=== PATIENT | male | born 1985 | race Hispanic/Latino ===

== ENCOUNTER 2017-08-10 11:16 | Inpatient (IN) | payer OTHER ==
--- NOTE | 2017-08-10 12:10 | ED PDOC ---
HPI: General Adult Time Seen by Provider: 08/10/17 11:35 Chief Complaint (Nursing): Upper Extremity Problem/Injury History Per: Patient Additional Complaint(s): Pt. states he fell down yesterday and injured the R elbow. Denies numbness, tingling, other injury. Past Medical History Reviewed: Historical Data, Nursing Documentation, Vital Signs Vital Signs: Last Vital Signs Temp 98 F 08/10/17 17:32 Pulse 75 08/10/17 17:32 Resp 18 08/10/17 17:32 BP 130/78 08/10/17 17:32 Pulse Ox 96 08/10/17 17:42 - Medical History Other PMH: Factor V Leiden - Family History Family History: States: No Known Family Hx - Allergies Allergies/Adverse Reactions: Allergies Allergy/AdvReac Type Severity Reaction Status Date / Time No Known Allergies Allergy Verified 08/10/17 11:35 Review of Systems ROS Statement: Except As Marked, All Systems Reviewed And Found Negative Physical Exam - Reviewed Nursing Documentation Reviewed: Yes Vital Signs Reviewed: Yes - Physical Exam Appears: Positive for: Well, Non-toxic, No Acute Distress Head Exam: Positive for: ATRAUMATIC, NORMAL INSPECTION, NORMOCEPHALIC Skin: Positive for: Normal Color, Warm. Negative for: Rash Eye Exam: Positive for: EOMI, Normal appearance, PERRL ENT: Positive for: Normal ENT Inspection Neck: Positive for: Normal, Painless ROM Cardiovascular/Chest: Positive for: Regular Rate, Rhythm Respiratory: Positive for: CNT, Normal Breath Sounds Pulses-Radial (L): 2+ Pulses-Radial (R): 2+ Gastrointestinal/Abdominal: Positive for: Normal Exam, Bowel Sounds, Soft. Negative for: Tenderness Back: Positive for: Normal Inspection Extremity: Positive for: Capillary Refill (< 2 seconds of RUE), Other (R elbow with mild tenderness and swelling without deformity; no shoulder or wrist tenderness on RUE; limited ROM of R elbow secondary to pain) Neurologic/Psych: Positive for: Alert, Oriented - Laboratory Results Result Diagrams: 08/10/17 15:10 08/10/17 15:10 - ECG O2 Sat by Pulse Oximetry: 96 - Progress ED Course And Treament: R elbow x-ray ordered. Motrin 600mg PO ordered. 1200 Elbow x-ray: ? radial head fx 1306 CT R elbow w/o contrast: Minimally displaced radial head fracture with associated joint effusion. Case d/w Dr. Otero, ortho international relations professor, and will come to ED to see patient. 1430 Dr. Otero at bedside and performed joint aspiration in ED. Requests that pt. be admitted to medical service international relations professor and pt. will require surgery tomorrow. NPO after midnight. Elbow immobilized by Dr. Otero with posterior orthoglass splint. 1455 Case d/w Dr. Pierce and arrangements made for admission. Disposition - Clinical Impression Clinical Impression: Right radial head fracture - Patient ED Disposition Is Patient to be Admitted: No - Disposition Disposition Time: 14:40 Condition: STABLE
--- NOTE | 2017-08-10 13:08 | CT ---
PROCEDURE: CT of the Right elbow. HISTORY: attention R elbow COMPARISON: None available. TECHNIQUE: Contiguous axial images of the right elbow were obtained. Coronal and sagittal reformats were generated. This CT exam was performed using one or more of the following dose reduction techniques: Automated exposure control, adjustment of the mA and/or kV according to patient size, and/or use of iterative reconstruction technique. FINDINGS: BONES: Minimally displaced radial head fracture with associated joint effusion. RIGHT JOINT: Unremarkable. No dislocation. No degenerative changes. SOFT TISSUES: Unremarkable. IMPRESSION: Minimally displaced radial head fracture with associated joint effusion.
[2017-08-10] MEDS ORDERED: Povidone Iodine Topical 10% Sol ONE (14:26)
[2017-08-10] MEDS ORDERED: Lidocaine 1% Inj (20ml) ONE (14:26)
[2017-08-10] MEDS ORDERED: Oxycodone/Acetaminophen 5/325 mg Tab PO STA (14:29)
[2017-08-10] MEDS ORDERED: Oxycodone/Acetaminophen 5/325 mg Tab ONE (14:58)
[2017-08-10 15:29] LABS: BASO # 0.1 K/uL (0.0-0.2); BASO % 0.8 % (0.0-2.0); EOS # 0.1 K/uL (0.0-0.7); EOS % 1.2 % (0.0-4.0); LYMPH # 2.5 K/uL (1.0-4.3); LYMPH % 24.8 % (20.0-40.0); MEAN CELL VOLUME 93.2 fl (80.0-94.0); MEAN CORPUSCULAR HEMOGLOBIN 31.6 pg (27.0-31.0); MEAN CORPUSCULAR HGB CONC 33.9 g/dL (33.0-37.0); MEAN PLATELET VOLUME 7.8 fl (7.2-11.7); MONO # 0.9 K/uL (0.0-0.8); MONO % 8.9 % (0.0-10.0); NEUT # 6.6 K/uL (1.8-7.0); NEUT % 64.3 % (50.0-75.0); WHITE BLOOD COUNT 10.2 K/uL (4.8-10.8)
[2017-08-10 15:55] LABS: PARTIAL THROMBOPLASTIN TIME 29.6 Seconds (25.6-37.1)
[2017-08-10] MEDS ORDERED: Oxycodone/Acetaminophen 5/325 mg Tab PO PRN (16:53)
[2017-08-10 16:54] LABS: ALB/GLOB RATIO 1.3 (1.0-2.1); ALKALINE PHOSPHATASE 63 U/L (38-126); ALT/SGPT 33 U/L (21-72); AST/SGOT 22 U/L (17-59); BLOOD UREA NITROGEN 12 mg/dl (9-20); CALCIUM 9.3 mg/dL (8.4-10.2); CARBON DIOXIDE 26 mmol/L (22-30); CHLORIDE 103 mmol/L (98-107); GFR AFRICAN-AMERICAN > 60; GLUCOSE,RANDOM 98 mg/dL (75-110); POTASSIUM 3.9 MMOL/L (3.6-5.0); SODIUM 139 mmol/l (132-148); TOTAL PROTEIN 8.2 G/DL (6.3-8.2)
[2017-08-10] MEDS ORDERED: HYDROmorphone 0.5 mg/0.5 ml ISec IVP PRN (19:53)
[2017-08-11] MEDS ORDERED: Sodium Chloride 0.9% 1,000 ML IV SCH
--- NOTE | 2017-08-11 00:18 | CP.PCM.HP ---
History of Present Illness - History of Present Illness History of Present Illness: CC: Fall and Right Elbow Pain History of Present Illness: A 32yoM with No PMH except chronic smoking had a fall yesterday, and walked into ED with presenting c/o s/p fall during skateboarding causing injury to RT. elbow with pain/ swelling. + Limited ROM. Denies any injury to the head or LOC. Denies MARVIN, chest pain, HAd surgery for Tympanoplasty and fractures after falls, and as per the mother had Nausea. Currently splinted and no pain. Present on Admission - Present on Admission Any Indicators Present on Admission: No Review of Systems - Review of Systems All systems: reviewed and no additional remarkable complaints except - Musculoskeletal Musculoskeletal: As Per HPI Past Patient History - Infectious Disease Hx of Infectious Diseases: None - Past Medical History & Family History Past Medical History?: No Past Family History: Reviewed and not pertinent Pertinent Family History: Sister- Factor V Leyen Mutation Uncle- Colon Cancer-at the age of 44 Grand Parents- HTN, Lung CA and COPD, Breast Cancer, and Orpharyngeal Cancers - Past Social History Smoking Status: Heavy Smoker > 10 Cigarettes Daily Alcohol: Social Drugs: Denies - CARDIAC Hx Cardiac Disorders: No - MUSCULOSKELETAL/RHEUMATOLOGICAL Hx Falls: No - PSYCHIATRIC Hx Substance Use: No - SURGICAL HISTORY Hx Surgeries: No Hx Musculoskeletal Surgery: Yes Hx Orthopedic Surgery: Yes Other/Comment: Tympanoplasty and ORIF - ANESTHESIA Hx Anesthesia: Yes Hx Anesthesia Reactions: Yes (Nausea) Meds Allergies/Adverse Reactions: Allergies Allergy/AdvReac Type Severity Reaction Status Date / Time No Known Allergies Allergy Verified 08/10/17 11:35 Physical Exam - Constitutional Appears: Well, No Acute Distress - Head Exam Head Exam: ATRAUMATIC, NORMAL INSPECTION, NORMOCEPHALIC - Eye Exam Eye Exam: EOMI, Normal appearance, PERRL Pupil Exam: NORMAL ACCOMODATION, PERRL - ENT Exam ENT Exam: Mucous Membranes Moist, Normal Exam - Neck Exam Neck exam: Positive for: Full Rom, Normal Inspection - Respiratory Exam Respiratory Exam: Clear to Auscultation Bilateral, NORMAL BREATHING PATTERN - Cardiovascular Exam Cardiovascular Exam: REGULAR RHYTHM, +S1, +S2 - GI/Abdominal Exam GI & Abdominal Exam: Normal Bowel Sounds, Soft. absent: Tenderness - Extremities Exam Extremities exam: Positive for: normal inspection Additional comments: Right Upper extremity splinted and normal Neurovascular bundle function distally to the injured site.. - Back Exam Back exam: NORMAL INSPECTION - Neurological Exam Neurological exam: Alert, CN II-XII Intact, Normal Gait, Oriented x3, Reflexes Normal - Psychiatric Exam Psychiatric exam: Normal Affect, Normal Mood - Skin Skin Exam: Dry, Intact, Normal Color, Warm Results - Vital Signs Recent Vital Signs: Last Vital Signs Temp 97.8 F 08/10/17 18:20 Pulse 79 08/10/17 18:20 Resp 18 08/10/17 18:21 BP 125/82 08/10/17 18:20 Pulse Ox 96 08/10/17 18:20 - Labs Result Diagrams: 08/11/17 05:45 08/10/17 15:10 Labs: Laboratory Results - last 24 hr 08/10/17 08/10/17 08/10/17 15:10 15:10 15:10 WBC 10.2 RBC 5.37 Hgb 17.0 Hct 50.0 MCV 93.2 MCH 31.6 H MCHC 33.9 RDW 14.0 Plt Count 282 MPV 7.8 Neut % (Auto) 64.3 Lymph % (Auto) 24.8 Iroquois % (Auto) 8.9 Eos % (Auto) 1.2 Baso % (Auto) 0.8 Neut # 6.6 Lymph # 2.5 [place]quois # 0.9 H Eos # 0.1 Baso # 0.1 PT 11.4 INR 1.0 APTT 29.6 Sodium 139 Potassium 3.9 Chloride 103 Carbon Dioxide 26 Anion Gap 14 BUN 12 Creatinine 0.8 Est GFR ( Amer) > 60 Est GFR (Non-Af Amer) > 60 Random Glucose 98 Calcium 9.3 Total Bilirubin 1.0 AST 22 ALT 33 Alkaline Phosphatase 63 Total Protein 8.2 Albumin 4.6 Globulin 3.6 Albumin/Globulin Ratio 1.3 Blood Type Blood Type Confirm Antibody Screen BBK History Checked 08/10/17 08/10/17 15:10 17:20 WBC RBC Hgb Hct MCV MCH MCHC RDW Plt Count MPV Neut % (Auto) Lymph % (Auto) [place]quois % (Auto) Eos % (Auto) Baso % (Auto) Neut # Lymph # [place]roquois # Eos # Baso # PT INR APTT Sodium Potassium Chloride Carbon Dioxide Anion Gap BUN Creatinine Est GFR ( Amer) Est GFR (Non-Af Amer) Random Glucose Calcium Total Bilirubin AST ALT Alkaline Phosphatase Total Protein Albumin Globulin Albumin/Globulin Ratio Blood Type B POSITIVE Blood Type Confirm B POSITIVE Antibody Screen Negative BBK History Checked No verified bt - Imaging and Cardiology X-RAy of the Right Elbow: Status: Report reviewed by me Additional comment: IMPRESSION: Nondisplaced radial head fracture is suspected. CT of the Right Elbow: Status: Report reviewed by me Additional comment: IMPRESSION: Minimally displaced radial head fracture with associated joint effusion. Assessment & Plan (1) Right radial head fracture Assessment and Plan: Minimally Displaced Dilaudid PRN EKG and Chest X-Ray PT/INR/PTT Repeat CVBC and BMP In Am Orthopedic Consult >4 METs Equivalent Medically Cleared with Acceptable Risk for the Surgery Status: Acute (2) Smoker within last 12 months Assessment and Plan: Counselled to Quit Status: Chronic (3) FHx: factor V Leiden mutation Assessment and Plan: Factor V Laden Mutation May Need DVT Prophylaxis Status: Chronic Priority: Low (4) FHx: colon cancer Assessment and Plan: Recommended Colonoscopy AT the age of 34(uncla colon CA at 44years of age) Status: Chronic Priority: Medium
--- NOTE | 2017-08-11 07:30 | RAD ---
PROCEDURE: Radiographs of the right elbow. Right Wrist Radiographs. HISTORY: trauma COMPARISON: No prior. FINDINGS: BONES: Nondisplaced radial head fracture is suspected. JOINTS: Normal. No osteoarthritis. SOFT TISSUES: Normal. JOINT EFFUSION: None. OTHER FINDINGS: None. IMPRESSION: Nondisplaced radial head fracture is suspected.
[2017-08-11 08:44] LABS: BASO % 0.6 % (0.0-2.0); EOS # 0.2 K/uL (0.0-0.7); EOS % 2.2 % (0.0-4.0); HEMATOCRIT 44.6 % (35.0-51.0); LYMPH # 2.4 K/uL (1.0-4.3); LYMPH % 33.1 % (20.0-40.0); MEAN CELL VOLUME 93.5 fl (80.0-94.0); MEAN CORPUSCULAR HEMOGLOBIN 31.6 pg (27.0-31.0); MEAN CORPUSCULAR HGB CONC 33.8 g/dL (33.0-37.0); MEAN PLATELET VOLUME 8.1 fl (7.2-11.7); MONO # 0.9 K/uL (0.0-0.8); MONO % 11.9 % (0.0-10.0); NEUT # 3.8 K/uL (1.8-7.0); NEUT % 52.2 % (50.0-75.0); NRBC % 0.1 % (0.0-0.0); RED CELL DISTRIBUTION WIDTH 13.8 % (11.5-14.5); WHITE BLOOD COUNT 7.2 K/uL (4.8-10.8)
[2017-08-11 08:51] LABS: PARTIAL THROMBOPLASTIN TIME 32.2 Seconds (25.6-37.1)
[2017-08-11 09:08] LABS: BLOOD UREA NITROGEN 10 mg/dl (9-20); CALCIUM 8.6 mg/dL (8.4-10.2); CARBON DIOXIDE 26 mmol/L (22-30); CHLORIDE 105 mmol/L (98-107); GFR AFRICAN-AMERICAN > 60; GLUCOSE,RANDOM 89 mg/dL (75-110); POTASSIUM 4.2 MMOL/L (3.6-5.0); SODIUM 138 mmol/l (132-148)
--- NOTE | 2017-08-11 09:22 | RAD ---
HISTORY: Smoker COMPARISON: No prior. FINDINGS: LUNGS: No active pulmonary disease. PLEURA: No significant pleural effusion identified, no pneumothorax apparent. CARDIOVASCULAR: Normal. OSSEOUS STRUCTURES: No significant abnormalities. VISUALIZED UPPER ABDOMEN: Normal. OTHER FINDINGS: None. IMPRESSION: No active disease.
[2017-08-11] MEDS ORDERED: Bupivacaine 0.5% Inj(30mL) ONE (09:53)
[2017-08-11] MEDS ORDERED: ceFAZolin IV 1 gm in Dextrose 2 GM/100 ML BAG IVPB ONE (09:53)
[2017-08-11] MEDS ORDERED: Lidocaine 1% Inj (20ml) ONE (09:53)
[2017-08-11] MEDS ORDERED: Propofol 10 mg/ml Inj (20 ML) ONE ×2 (10:14→11:41)
[2017-08-11] MEDS ORDERED: Midazolam 2 MG/2 ML VIAL ONE (10:15)
[2017-08-11] MEDS ORDERED: Succinylcholine 200 mg/10 ml Inj IV ONE (10:15)
[2017-08-11] MEDS ORDERED: SENSORCAINE 0.5% W/EPINEPHRINE 50ML MDV IJ ONE (10:19)
[2017-08-11] MEDS ORDERED: Lidocaine 2% PF (10 ml) Amp ONE (10:19)
--- NOTE | 2017-08-11 10:57 | CP.PCM.PN ---
Subjective - Date & Time of Evaluation Date of Evaluation: 08/11/17 Time of Evaluation: 10:35 - Subjective Subjective: Denies pain or numbness or tingling distal to the Fracture site. He is being wheeled down for ORIF. Objective - Vital Signs/Intake and Output Vital Signs (last 24 hours): Temp Pulse Resp BP Pulse Ox 97.7 F 65 18 116/76 96 08/11/17 07:57 08/11/17 07:57 08/11/17 07:57 08/11/17 07:57 08/11/17 07:57 - Medications Medications: Current Medications Hydromorphone HCl (Dilaudid) 1 mg IVP Q4 PRN PRN Reason: Pain, severe (8-10) Last Admin: 08/10/17 22:02 Dose: 1 mg Hydromorphone HCl (Dilaudid) 0.5 mg IVP Q4 PRN PRN Reason: Pain, moderate (4-7) Stop: 08/12/17 19:53 Last Admin: 08/11/17 08:09 Dose: 0.5 mg Sodium Chloride (Sodium Chloride 0.9%) 1,000 mls @ 120 mls/hr IV .Q8H20M DG Stop: 08/11/17 14:58 Last Admin: 08/10/17 23:12 Dose: 120 mls/hr - Labs Labs: 08/11/17 05:45 08/11/17 05:45 PT 11.0 Seconds (9.8-13.1) 08/11/17 05:45 INR 1.0 (0.9-1.2) 08/11/17 05:45 APTT 32.2 Seconds (25.6-37.1) 08/11/17 05:45 - Constitutional Appears: Well, No Acute Distress - Head Exam Head Exam: ATRAUMATIC, NORMAL INSPECTION, NORMOCEPHALIC - Neurological Exam Neurological Exam: Alert, Awake - Skin Additional comments: EKG= Normal sinus with non specific chages CXR: No ACute finding. Assessment and Plan (1) Right radial head fracture Assessment & Plan: Minimally Displaced Dilaudid PRN EKG and Chest X-Ray- Completed PT/INR/PTT Repeat CBC and BMP In Am Orthopedic Consult >4 METs Equivalent Medically Cleared with Acceptable Risk for the Surgery Status: Acute (2) Smoker within last 12 months Assessment and Plan: Counselled to Quit Status: Chronic (3) FHx: factor V Leiden mutation Assessment and Plan: Factor V Laden Mutation May Need DVT Prophylaxis Status: Chronic Priority: Low (4) FHx: colon cancer Assessment and Plan: Recommended Colonoscopy At the age of 34 (Uncle Colon CA at 44 years of age) Status: Acute
[2017-08-11] MEDS ORDERED: Lidocaine 4% (Laryng-O-Jet) Kit MM ONE (11:07)
[2017-08-11] MEDS ORDERED: Lactated Ringer's 1,000 ML IV ONE ×2 (12:08→12:45)
--- NOTE | 2017-08-11 13:06 | PCM.SURG1 ---
Surgeon's Initial Post Op Note - Surgeon's Notes Surgeon: Dr. Cali Otero Renal Dialysis Technician: Dr. Tyler Whitten Pre-Operative Diagnosis: Right elbow radial head fracture Operative Findings: See dictation Post-Operative Diagnosis: same Operation Performed: Right elbow ORIF radial head fracture. LUCL repair Specimen/Specimens Removed: none Estimated Blood Loss: EBL {In ML}: 20 Date of Surgery/Procedure: 08/11/17 Time of Surgery/Procedure: 11:00
[2017-08-11] MEDS ORDERED: HYDROmorphone 0.5 mg/0.5 ml ISec ONE (13:30)
[2017-08-11] MEDS: HYDROmorphone 0.5 mg/0.5 ml ISec IVP PRN ×2 (13:30→13:51)
--- NOTE | 2017-08-11 14:06 | CARD ---
APPROVED REPORT EKG Measurement Heart [id number] <Conclusion> Sinus bradycardia Left axis deviation Abnormal ECG
--- NOTE | 2017-08-11 17:09 | RAD ---
PROCEDURE: Right elbow Radiographs. HISTORY: s/p surgery COMPARISON: None. FINDINGS: BONES: Status post radial head fracture repair. JOINTS: Normal. No dislocation. SOFT TISSUES: Normal. OTHER FINDINGS: None. IMPRESSION: Status post radial head fracture repair.
--- NOTE | 2017-08-11 22:03 | OP ---
PROCEDURE DATE: 08/11/2017 ATTENDING SURGEON: Cali Otero MD TRAVEL SALES CONSULTANT: Tyler Whitten MD PREOPERATIVE DIAGNOSES: 1. Right elbow displaced radial head fracture. 2. Elbow instability. 3. Acute contusion of the right elbow. POSTOPERATIVE DIAGNOSES: 1. Right elbow displaced radial head fracture. 2. Contusion of soft tissue of the right elbow along with hematoma. 3. Lateral ulnar collateral ligament tear. 4. Loose bodies of the intraarticular joint. PROCEDURE: 1. Right elbow open reduction and internal fixation of the radial head. 2. Lateral ulna collateral ligament repair using suture anchors. 3. Soft tissue exploration with evacuation of hematoma. 4. Removal of loose bodies from the elbow joint. 5. Placement of a long arm splint. 6. Fluoroscopic use under 1 hour. TYPE OF ANESTHESIA: General. IMPLANTS: 1. Synthes headless compression screws x2. 2. Arthrex 3.0 SutureTak. COMPLICATIONS: None. HISTORY: The patient is a 32-year-old male, right-hand dominant, who had an injury to the right elbow performing with a skateboard. Patient was seen in the emergency room by me and he underwent aspiration and exam under local anesthesia which showed a radial head fracture with limited range of motion with a displaced fragment, intraarticular. At that point, due to displaced nature, I presented the patient with the option of nonoperative as well as the operative management. I reviewed the risks and benefits of both the options with the patient in details and patient opted to proceed with the operative option of the right elbow radial head open reduction and internal fixation, wound exploration, possible LUCL repair and removal of loose bodies. I reviewed the risks and benefits of the surgery with the patient in detail. The risks included but not limited to bleeding, infection, nerve vessel damage, continued pain, stiffness, symptomatic hardware, nonunion, malunion, need for further surgery, elbow stiffness and instability, among blood clots. Patient fully understood the risks and benefits and opted to proceed. DESCRIPTION OF PROCEDURE: On the day of the surgery, patient was admitted to preoperative holding area. A laterality sheet was completed, confirming patient's right elbow to be the correct operative site. An informed consent was signed once again reviewing the risk and benefits as stated above. Afterwards, patient was brought into operating room table. He underwent general anesthesia. He was given appropriate prophylactic antibiotics. A padded tourniquet was applied to the patient's right arm. First, timeout was completed confirming patient's right elbow to be the correct operative site. We proceed with the exam under anesthesia which showed a displaced radial head fracture with a loss of motion. The tourniquet, Esmarch, was used to exsanguinate the extremity and the tourniquet was inflated to 250 mmHg. A standard lateral Elisabeth incision approach was utilized and a 5-cm incision was made. The interval between the anconeus and ECU was identified and the capsule excised to enter the radiocapitellar joint and the arm was strictly pronated to protect the PIN nerve. There was a hematoma that was exsanguinated. We also explored soft tissue and debrided the soft tissue and bone along with fractured loose pieces of bone within the intraarticular joint. The hematoma was copiously irrigated, removed all the bone debris and small articular fragments from the joint. The fracture fragment was mobilized and was reduced. The fracture reduction was provisionally held in placed using K-wires. Length of the K-wire was confirmed with both AP and lateral radiographs and a drill bit was used and Synthes 2.0-mm headless compression screws were used to obtain the fracture fragment. Next, the adequacy of reduction and the hardware placement were confirmed on multiple radiographs. Finally, the elbow was taken through range of motion. There was injury to the lateral ulnar collateral ligament. To repair the ligament, an Arthrex 3.0 SutureTak was used with a loaded #1 FiberWire and the lateral collateral ligament was repaired along with the extensor tendons repair. The elbow was found to be stable throughout the entire range of motion. The wound was copiously irrigated. All the loose bodies were removed. All the debris was removed. The interval was closed using #1 Vicryl sutures, skin edges were brought together using 2-0 Vicryl, and the skin was closed using Monocryl sutures. A sterile dressing was applied. Patient's arm was placed in a long posterior splint. Patient was extubated. He was transferred to a stretcher and taken to recovery room and postoperative neurovascular exam was intact and there were no complication of surgery. Dr. Tyler Whitten is a board certified orthopedic surgeon who was present for the entirety of the case as his participation was crucial in the patient's positioning, retraction of critical neurovascular structures, proper positioning of the implant, and successful completion of the surgery. Cali Otero MD KULWINDER
--- NOTE | 2017-08-11 23:19 | OP ---
PROCEDURE DATE: 08/10/2017 PREOPERATIVE DIAGNOSIS: Displaced right elbow radial head fracture. POSTOPERATIVE DIAGNOSIS: Displaced right elbow radial head fracture. PROCEDURE: 1. Right elbow exam under local anesthesia to assess for range of motion. 2. Fluoroscopic examination. 3. Placement of a long arm splint. DESCRIPTION OF PROCEDURE: Patient is a 32-year-old male who had a skateboard injury landing on to his right elbow. X-rays and CT scan showing a displaced intraarticular radial head fracture. I explained to the patient, I will proceed with exam under local anesthesia to assess for any lack of motion. I reviewed the risks and benefits of the procedure with the patient in detail which include bleeding, infection, nerve vessel damage, need for further procedure, continued pain and stiffness. The patient fully understood the risks and benefits and wanted to proceed. The patient's elbow was draped and prepped in standard sterile manner. First, 3 mL of local lidocaine was inserted subdermal. Under strict sterile condition, [id number] needle was placed into the elbow joint and 5 mL of acute hematoma was aspirated. Next, 5 mL of 1% lidocaine without epinephrine was injected. Afterwards, when the patient's pain subsided, elbow was taken through range of motion and the patient had lack of 30 degrees of extension and flexion up only 100 degrees and limited pronation and supination despite the pain relief. Next, the wound was covered in a sterile dressing and the patient's arm was placed in a long arm splint. There were no complication of the procedure. Cali Otero MD
--- NOTE | 2017-08-12 00:13 | CON ---
DATE: 08/11/2017 HISTORY OF PRESENT ILLNESS: Patient is a 32-year-old male, right-hand dominant who fell off his skateboard and had an injury to his right elbow. The patient presented to the ER and an x-ray had shown a displaced intraarticular radial head fracture. The patient was examined by me in the ER and we had a detailed discussion with the patient, explaining the complex nature of the fracture and displacement. I explained to the patient, we will proceed with aspiration of the hematoma with exam under local anesthesia to assess for any lack of motion. The patient denies injury to any other extremity or joint, denies loss of consciousness, denies any previous injury of the right elbow. PHYSICAL EXAMINATION: EXTREMITIES: Examination of the patient's right elbow: there was significant swelling and ecchymosis over the elbow. In the radial head, there was tenderness to palpation over the radial head, had limited range of motion both in flexion and extension and pronation and supination. Neurovascularly, the median, ulnar, radial, AIN, and PIN nerves intact distally; 2+ radial pulses. Sensation is grossly intact.. IMAGING: X-rays and CT scan of the patient's right elbow showing depressed, large intraarticular radial head fracture. ASSESSMENT AND PLAN: A 32-year-old male with displaced right elbow radial head fracture with loss of motion. Treatment after assessing the patient's exam under anesthesia with lack of motion and limited range of motion, I presented the patient with the option of open reduction and internal fixation of the right elbow, wound exploration, positive ligament repair and all indicative procedures. I reviewed the risks and benefits of the surgery with the patient in detail and the patient would like to proceed. He will be admitted overnight for monitoring. He will remain n.p.o. after midnight and will be scheduled per the operative room tomorrow for the open reduction and internal fixation of the right elbow. Cali Otero MD KULWINDER
[2017-08-12 08:14] VITALS: BP 142/81; PULSE 83; RESP 20; TEMP 98.7; O2SAT 91
[2017-08-12] MEDS ORDERED: Enoxaparin 40 mg Syringe SC SCH (09:00)
[2017-08-12] MEDS ORDERED: Oxycodone/Acetaminophen 5/325 mg Tab PO PRN ×2 (09:10→10:28)
--- NOTE | 2017-08-12 12:49 | CP.PCM.PN ---
Subjective - Date & Time of Evaluation Date of Evaluation: 08/12/17 Time of Evaluation: 15:00 - Subjective Subjective: 32 yo M, RHD, S/P ORIF right elbow radial head fx and LUCL repair POD#1 Pt seen and examined at bedside, comfortable in bed Pt c/o mod right elbow pain Pt denies SOB, chest pain, N/V/D, numbness/tingling RUE Objective - Vital Signs/Intake and Output Vital Signs (last 24 hours): Temp Pulse Resp BP Pulse Ox 98.7 F 83 20 142/81 91 L 08/12/17 08:13 08/12/17 08:13 08/12/17 08:13 08/12/17 08:13 08/12/17 08:13 - Medications Medications: Current Medications Aspirin (Aspirin) 325 mg PO DAILY [facility] Last Admin: 08/12/17 09:09 Dose: 325 mg Enoxaparin Sodium (Lovenox) 40 mg SC DAILY DG PRN Reason: Protocol Last Admin: 08/12/17 12:19 Dose: 40 mg Hydromorphone HCl (Dilaudid) 1 mg IVP Q4 PRN PRN Reason: Pain, severe (8-10) Last Admin: 08/12/17 10:31 Dose: 1 mg Hydromorphone HCl (Dilaudid) 0.5 mg IVP Q4 PRN PRN Reason: Pain, moderate (4-7) Stop: 08/12/17 19:53 Last Admin: 08/11/17 19:02 Dose: 0.5 mg Oxycodone/Acetaminophen (Percocet 5/325 Mg Tab) 1 tab PO Q4 PRN PRN Reason: Pain, moderate (4-7) Stop: 08/15/17 09:11 Last Admin: 08/12/17 09:35 Dose: 1 tab Oxycodone/Acetaminophen (Percocet 5/325 Mg Tab) 2 tab PO Q4 PRN PRN Reason: Pain, severe (8-10) Stop: 08/15/17 10:29 - Labs Labs: 08/11/17 05:45 08/11/17 05:45 PT 11.0 Seconds (9.8-13.1) 08/11/17 05:45 INR 1.0 (0.9-1.2) 08/11/17 05:45 APTT 32.2 Seconds (25.6-37.1) 08/11/17 05:45 - Constitutional Appears: Well, No Acute Distress - Respiratory Exam Respiratory Exam: Clear to Ausculation Bilateral, NORMAL BREATHING PATTERN - Cardiovascular Exam Cardiovascular Exam: REGULAR RHYTHM, RRR - Extremities Exam Additional comments: RUE: splint in place, C/D/I +mild swelling digits of right hand Normal ROM all digits right hand N/V intact distally cap refill <2sec Assessment and Plan - Assessment and Plan (Free Text) Assessment: 32 yo M, RHD, s/p ORIF right elbow radial head fx and LUCL repair POD#1 Plan: Pain Control Continue splint and sling RUJv SAMPSON RUJv Can d/c home today F/U as outpt in 1 wk
--- NOTE | 2017-08-12 15:24 | CP.PCM.PCO ---
Assessment/Plan - Assessment/Plan Assessment (Free Text): Pt stable, seen and cleared for d/c home by magalys and Dr. Love. Per Dr. Love, pt to be d/c'd on Eliquis 2.5mg bid. Rx given. Pt to f/u with Dr. 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 Pt cleared by Dr. Pierce for d/c home. Rx for Percocet given. Pt to f/u with Dr. Otero in 1 week.
--- NOTE | 2017-08-12 16:02 | CP.PCM.CON ---
History of Present Illness - History of Present Illness History of Present Illness: This is a 32 yrs old male who was brought to the ER after a fall sustained while he was surfboarding. He had a slightly displaced fracture to his right elbow . He had a OTIF done and is doing well.His father had a h/o Factor V leiden mutation. i was asked to see if pt could have the same.He has never had a thrombotic episode even though he has had traumas before. Past Patient History - Infectious Disease Hx of Infectious Diseases: None - Past Medical History & Family History Past Medical History?: No Past Family History: Reviewed and not pertinent - Past Social History Smoking Status: Heavy Smoker > 10 Cigarettes Daily Alcohol: Social Drugs: Denies - CARDIAC Hx Cardiac Disorders: No - MUSCULOSKELETAL/RHEUMATOLOGICAL Hx Falls: No - PSYCHIATRIC Hx Substance Use: No - SURGICAL HISTORY Hx Surgeries: No Hx Musculoskeletal Surgery: Yes Hx Orthopedic Surgery: Yes Other/Comment: Tympanoplasty and ORIF - ANESTHESIA Hx Anesthesia: Yes Hx Anesthesia Reactions: Yes (Nausea) Meds Home Medications: Home Medication List Medication Instructions Recorded Confirmed Type Apixaban [Eliquis] 2.5 mg PO BID #30 tablet 08/12/17 Rx oxyCODONE/Acetaminophen [Percocet 2 tab PO Q6 PRN #20 tab 08/12/17 Rx 5/325 mg Tab] Allergies/Adverse Reactions: Allergies Allergy/AdvReac Type Severity Reaction Status Date / Time No Known Allergies Allergy Verified 08/10/17 11:35 - Medications Medications: Current Medications Aspirin (Aspirin) 325 mg PO DAILY [facility] Last Admin: 08/12/17 09:09 Dose: 325 mg Enoxaparin Sodium (Lovenox) 40 mg SC DAILY DG PRN Reason: Protocol Last Admin: 08/12/17 12:19 Dose: 40 mg Hydromorphone HCl (Dilaudid) 1 mg IVP Q4 PRN PRN Reason: Pain, severe (8-10) Last Admin: 08/12/17 10:31 Dose: 1 mg Hydromorphone HCl (Dilaudid) 0.5 mg IVP Q4 PRN PRN Reason: Pain, moderate (4-7) Stop: 08/12/17 19:53 Last Admin: 08/11/17 19:02 Dose: 0.5 mg Oxycodone/Acetaminophen (Percocet 5/325 Mg Tab) 1 tab PO Q4 PRN PRN Reason: Pain, moderate (4-7) Stop: 08/15/17 09:11 Last Admin: 08/12/17 09:35 Dose: 1 tab Oxycodone/Acetaminophen (Percocet 5/325 Mg Tab) 2 tab PO Q4 PRN PRN Reason: Pain, severe (8-10) Stop: 08/15/17 10:29 Last Admin: 08/12/17 15:04 Dose: 2 tab Physical Exam - Additional Findings Additional findings: Physical exam' Alert, well oriented in no acute distress neck; Supple, no adenopathy Chest; Clear, no rales or rhonchi Heart; RSR, no murmur Abd; Soft, no mass, no h/s megaly Results - Vital Signs Recent Vital Signs: Last Vital Signs Temp 98.7 F 08/12/17 08:13 Pulse 83 08/12/17 08:13 Resp 20 08/12/17 08:13 BP 142/81 08/12/17 08:13 Pulse Ox 91 L 08/12/17 08:13 - Labs Result Diagrams: 08/11/17 05:45 08/11/17 05:45 Assessment & Plan - Assessment and Plan (Free Text) Assessment: Impression; Fracture right elbow with Orif. Family h/o Factor V mutation. Plan: Plan; Will send out the test for factor V leiden. This may take upto 10 days for the result to come back. Pt may be discharged when ok with PMD. and i will folow up the result.
--- NOTE | 2017-08-12 21:03 | CP.PCM.DIS ---
Provider - Provider Date of Admission: 08/10/17 14:57 Attending physician: Reji Pierce MD Primary care physician: NO FAMILY PROVIDER Time Spent in preparation of Discharge (in minutes): 35 Diagnosis - Discharge Diagnosis (1) Right radial head fracture Status: Acute Hospital Course - Lab Results Lab Results: Most Recent Lab Values WBC 7.2 K/uL (4.8-10.8) 08/11/17 05:45 RBC 4.78 Mil/uL (4.40-5.90) 08/11/17 05:45 Hgb 15.1 g/dL (12.0-18.0) 08/11/17 05:45 Hct 44.6 % (35.0-51.0) 08/11/17 05:45 MCV 93.5 fl (80.0-94.0) 08/11/17 05:45 MCH 31.6 pg (27.0-31.0) H 08/11/17 05:45 MCHC 33.8 g/dL (33.0-37.0) 08/11/17 05:45 RDW 13.8 % (11.5-14.5) 08/11/17 05:45 Plt Count 252 K/uL (130-400) 08/11/17 05:45 MPV 8.1 fl (7.2-11.7) 08/11/17 05:45 Neut % (Auto) 52.2 % (50.0-75.0) 08/11/17 05:45 Lymph % (Auto) 33.1 % (20.0-40.0) 08/11/17 05:45 [place] % (Auto) 11.9 % (0.0-10.0) H 08/11/17 05:45 Eos % (Auto) 2.2 % (0.0-4.0) 08/11/17 05:45 Baso % (Auto) 0.6 % (0.0-2.0) 08/11/17 05:45 Neut # 3.8 K/uL (1.8-7.0) 08/11/17 05:45 Lymph # 2.4 K/uL (1.0-4.3) 08/11/17 05:45 [place] # 0.9 K/uL (0.0-0.8) H 08/11/17 05:45 Eos # 0.2 K/uL (0.0-0.7) 08/11/17 05:45 Baso # 0.0 K/uL (0.0-0.2) 08/11/17 05:45 PT 11.0 Seconds (9.8-13.1) 08/11/17 05:45 INR 1.0 (0.9-1.2) 08/11/17 05:45 APTT 32.2 Seconds (25.6-37.1) 08/11/17 05:45 Sodium 138 mmol/l (132-148) 08/11/17 05:45 Potassium 4.2 MMOL/L (3.6-5.0) 08/11/17 05:45 Chloride 105 mmol/L (98-107) 08/11/17 05:45 Carbon Dioxide 26 mmol/L (22-30) 08/11/17 05:45 Anion Gap 11 (10-20) 08/11/17 05:45 BUN 10 mg/dl (9-20) 08/11/17 05:45 Creatinine 0.8 mg/dl (0.8-1.5) 08/11/17 05:45 Est GFR ( Amer) > 60 08/11/17 05:45 Est GFR (Non-Af Amer) > 60 08/11/17 05:45 Random Glucose 89 mg/dL (75-110) 08/11/17 05:45 Calcium 8.6 mg/dL (8.4-10.2) 08/11/17 05:45 Total Bilirubin 1.0 mg/dl (0.2-1.3) 08/10/17 15:10 AST 22 U/L (17-59) 08/10/17 15:10 ALT 33 U/L (21-72) 08/10/17 15:10 Alkaline Phosphatase 63 U/L (38-126) 08/10/17 15:10 Total Protein 8.2 G/DL (6.3-8.2) 08/10/17 15:10 Albumin 4.6 g/dL (3.5-5.0) 08/10/17 15:10 Globulin 3.6 gm/dL (2.2-3.9) 08/10/17 15:10 Albumin/Globulin Ratio 1.3 (1.0-2.1) 08/10/17 15:10 Blood Type B POSITIVE 08/10/17 15:10 Blood Type Confirm B POSITIVE 08/10/17 17:20 Antibody Screen Negative 08/10/17 15:10 BBK History Checked No verified bt 08/10/17 15:10 Discharge Exam - Head Exam Head Exam: ATRAUMATIC, NORMAL INSPECTION, NORMOCEPHALIC Discharge Plan - Discharge Medications Prescriptions: Apixaban [Eliquis] 2.5 mg PO BID #30 tablet oxyCODONE/Acetaminophen [Percocet 5/325 mg Tab] 2 tab PO Q6 PRN #20 tab PRN Reason: Pain, Severe (8-10) - Follow Up Plan Condition: STABLE Disposition: HOME/ ROUTINE Instructions: Elbow Fracture in Adults (DC), ORIF of an Arm Fracture (DC) Additional Instructions: non weight bearing to right upper extremity follow up with MD in 1 week. Referrals: Ángela Love MD [Staff Provider] - Cali Otero MD [Staff Provider] - Reji Pierce MD [Staff Provider] -
--- NOTE | 2017-08-14 09:03 | RAD ---
PROCEDURE: Fluoroscopy greater than 1 hour HISTORY: ORIF RIGHT SHOULDER COMPARISON: None TECHNIQUE: Standard protocol for this study/examination. FINDINGS: Submitted images from the current procedure: 8.0 Total exam DLP: (mGy): 0.45 IMPRESSION: Total fluoroscopic time (continuous mode) utilized during the procedure: 26.8
== END 2017-08-12 16:10 | disposition home or self-care (01) | DRG 502 ==
LOC: H.ER 11:16 → SUPCPDRO 11:16 → H.ERHOLD 14:57 → H.MEDSURG1 18:00
PROVIDERS: ADMIT Internal Medicine; ATTEND Internal Medicine
PROC: 0LQ30ZZ Repair Right Upper Arm Tendon, Open Approach (ICD-10-PCS; 2017-08-11)
PROC: 0PSH04Z Reposition Right Radius with Internal Fixation Device, Open Approach (ICD-10-PCS; principal; 2017-08-11 10:30)
DX: S52.121A Displaced fracture of head of right radius, initial encounter for closed fracture (principal); F17.210 Nicotine dependence, cigarettes, uncomplicated; S53.31XA Traumatic rupture of right ulnar collateral ligament, initial encounter; S50.01XA Contusion of right elbow, initial encounter; V00.131A Fall from skateboard, initial encounter; Z80.0 Family history of malignant neoplasm of digestive organs; Y92.9 Unspecified place or not applicable